=== PATIENT | male | born 1955 | race Caucasian/White ===

== ENCOUNTER 2024-12-07 14:28 | Inpatient (IN) | payer MEDICARE, OTHER ==
[~2024-12-07] VITALS: Ht 167.6 cm; Wt 118.8 kg
[2024-12-07] MEDS ORDERED: MECL-159 PO (15:16)
[2024-12-07] MEDS ORDERED: NA P133E RC (15:16)
[2024-12-07] MEDS ORDERED: ACET-3117 PO (15:16)
[2024-12-07] MEDS ORDERED: FERR-56 PO (15:16)
[2024-12-07] MEDS ORDERED: INSU100V7 SQ (15:16)
[2024-12-07] MEDS ORDERED: ASPI81TA31 PO (15:16)
[2024-12-07] MEDS ORDERED: LEVE500T9 PO (15:16)
[2024-12-07] MEDS ORDERED: AMLO10TA4 PO (15:16)
[2024-12-07] MEDS ORDERED: GUAI-1197 PO (15:16)
[2024-12-07] MEDS ORDERED: LEVO200T9 PO (15:16)
[2024-12-07] MEDS ORDERED: DIFL15OI3 TP (15:16)
[2024-12-07] MEDS ORDERED: GABA300C PO (15:16)
[2024-12-07] MEDS ORDERED: LOSA25TA27 PO (15:16)
[2024-12-07] MEDS ORDERED: INSU100C (15:16)
[2024-12-07] MEDS ORDERED: BISA10SU61 RC (15:16)
[2024-12-07] MEDS ORDERED: ATOR40TA PO (15:16)
[2024-12-07] MEDS ORDERED: CEFP200T14 PO (15:16)
[2024-12-07] MEDS ORDERED: MAGN400O6 PO (15:16)
[2024-12-07] MEDS ORDERED: METF-442 PO (15:16)
[2024-12-07 15:36] LABS: CALCIUM 11.2 mg/dL (8.5-10.1); CARBON DIOXIDE 23 mmol/L (21-32); CHLORIDE 105 mmol/L (98-107); CREATININE 0.9 mg/dL (0.6-1.3); GLUCOSE 192 mg/dL (74-106); POTASSIUM 4.2 mmol/L (3.5-5.1); SODIUM SERUM 140 mmol/L (136-145); UREA NITROGEN, BLOOD 11 mg/dL (7-18)
[2024-12-07 15:37] LABS: AMMONIA 27 umol/L (11-32)
[2024-12-07 15:38] LABS: BASOPHILS # (AUTO) 0.1 K/UL (0.0-0.2); BASOPHILS % (AUTO) 1.3 % (0.0-2.0); DIFFERENTIAL COMMENT 1; EOSINOPHILS # (AUTO) 0.4 K/uL (0.0-0.7); EOSINOPHILS % (AUTO) 5.8 % (0.0-7.0); HEMATOCRIT 37.7 % (36.7-47.1); LYMPHOCYTES % (AUTO) 26.1 % (20.5-51.5); MEAN CORPUSCULAR HEMOGLOBIN 31.4 uug (23.8-33.4); MEAN CORPUSCULAR HGB CONC 34 g/dL (32.5-36.3); MEAN CORPUSCULAR VOLUME 91.4 fL (73.0-96.2); MONOCYTES # (AUTO) 0.5 K/uL (0.1-1.30); MONOCYTES % (AUTO) 6.9 % (0.0-11.0); NEUTROPHILS # (AUTO) 4.6 K/uL (1.8-8.9); NEUTROPHILS % (AUTO) 59.9 % (38.5-71.5); PLATELET COUNT (AUTO) 231 K/uL (152-348); RED BLOOD CELL COUNT(AUTO) 4.13 MIL/uL (4.06-5.63); RED CELL DISTRIBUTION WIDTH 13.3 % (12.1-16.2); WHITE BLOOD COUNT (AUTO) 7.7 K/uL (3.6-10.2)
[2024-12-07 15:48] LABS: ETHANOL < 3 MG/DL (0-10)
[2024-12-07 15:49] LABS: ALANINE AMINOTRANSFERASE 42 U/L (16-63); ALBUMIN 3.5 g/dL (3.4-5.0); ALKALINE PHOSPHATASE 109 U/L (50-136); ASPARTATE AMINOTRANSFERASE 20 U/L (15-37); BILIRUBIN,DIRECT 0.2 mg/dL (0.0-0.2); BILIRUBIN,TOTAL 0.4 mg/dL (0.2-1.0)
[2024-12-07 15:50] LABS: ACETAMINOPHEN < 2.0 ug/mL (10-30)
[2024-12-07 16:03] LABS: *BILIRUBIN,URIN NEGATIVE (NEGATIVE); *BLOOD, URINE NEGATIVE (NEGATIVE); *COLOR,URINE YELLOW (YELLOW); *KETONES,URINE NEGATIVE (NEGATIVE); *PROTEIN,URINE NEGATIVE (NEGATIVE); LEUKOCYTE ESTERASE ,URINE NEGATIVE (NEGATIVE); NITRITE, URINE NEGATIVE (NEGATIVE); UGLUCOSE TRACE (NEGATIVE)
[2024-12-07 16:10] LABS: THYROID STIMULATING HORMONE 2.674 mIU/mL (0.358-3.740)
[2024-12-07 16:11] LABS: *CLARITY,URINE CLEAR (CLEAR)
[2024-12-07 16:12] LABS: RBC,URINE NONE SEEN /HPF (0-3); WBC,URINE 0-3 /HPF (0-3)
[2024-12-07 16:13] LABS: *AMPHETAMINE, URINE NEGATIVE (NEGATIVE); *BARBITURATE, URINE NEGATIVE (NEGATIVE); *BENZODIAZEPINE, URINE NEGATIVE (NEGATIVE); *CANNABINOID, URINE NEGATIVE (NEGATIVE); *COCCAINE, URINE NEGATIVE (NEGATIVE); *OPIATE, URINE NEGATIVE (NEGATIVE); *PHENCYCLIDINE SCREEN,URINE NEGATIVE (NEGATIVE); BACTERIA,URINE NONE SEEN /HPF (NONE SEEN); FENTANYL, URINE NEGATIVE (NEGATIVE); SQUAMOUS EPITHELIAL CELL,UR NONE SEEN /HPF (NONE SEEN); URINE AMORPHOUS URATE MODERATE /HPF
[2024-12-07] MEDS ORDERED: HYDROCODONE/APAP 10-325 MG TABLET ONE (17:26)
[2024-12-07] MEDS: HYDROCODONE/APAP 10-325 MG TABLET PO ONE (17:30)
[2024-12-07] MEDS ORDERED: CALCIUM CARBONATE 500 MG TAB.CHEW ONE (20:23)
[2024-12-07] MEDS: CALCIUM CARBONATE 500 MG TAB.CHEW PO STA (20:23)
[2024-12-08 02:00] VITALS: BP 155/76; TEMP 98.3; O2SAT 98
[2024-12-08] MEDS ORDERED: QUETIAPINE FUMARATE 25 MG TABLET PO PRN (03:45)
[2024-12-08] MEDS ORDERED: MAGNESIUM HYDROXIDE 30 ML LIQUID UDC PO PRN ×2 (03:45→12:00)
[2024-12-08] MEDS ORDERED: ZOLPIDEM 5 MG TABLET PO PRN (03:45)
[2024-12-08 08:18] VITALS: BP 146/73; TEMP 98.5; O2SAT 97
[2024-12-08] MEDS ORDERED: METF-440 PO (10:22)
[2024-12-08] MEDS ORDERED: ACET-2154 PO (10:23)
[2024-12-08] MEDS ORDERED: FLEET ENEMA 133 ML BOTTLE RC PRN (12:00)
[2024-12-08] MEDS ORDERED: BISACODYL 10 MG SUPP.RECT RC PRN (12:00)
[2024-12-08] MEDS ORDERED: ACETAMINOPHEN 325 MG TABLET-SA PATIENTS-PAIN ONLY PO PRN (12:00)
[2024-12-08] MEDS ORDERED: MECLIZINE HCL 25 MG TABLET PO PRN (12:00)
[2024-12-08] MEDS ORDERED: GUAIFENESIN SUGAR FREE 100 MG/5 ML UDC PO PRN (12:00)
[2024-12-08] MEDS ORDERED: ACETAMINOPHEN 325 MG TABLET PO PRN (12:15)
[2024-12-08] MEDS: AMLODIPINE 10 MG TABLET PO SCH (12:51)
[2024-12-08] MEDS: LOSARTAN POTASSIUM 25 MG TABLET PO SCH (12:51)
[2024-12-08] MEDS: FERROUS SULFATE 325 MG TABEC PO SCH (12:51)
[2024-12-08] MEDS: ASPIRIN 81 MG TAB.CHEW PO SCH (12:51)
[2024-12-08] MEDS: risperiDONE 0.5 MG TABLET PO PRN (12:53)
[2024-12-08] MEDS: DIVALPROEX 125 MG TABLET.DR PO SCH (13:15)
[2024-12-08] MEDS: ACETAMINOPHEN 325 MG TABLET PO PRN (13:40)
[2024-12-08 16:24] VITALS: BP 116/57; TEMP 98.5; O2SAT 98
[2024-12-08] MEDS: levETIRAcetam 500 MG TABLET PO SCH (17:25)
[2024-12-08] MEDS: GABAPENTIN 300 MG CAPSULE PO SCH (17:25)
[2024-12-08] MEDS: METFORMIN HCL 500 MG TABLET PO SCH (17:25)
[2024-12-08 20:00] VITALS: BP 110/59; TEMP 97.8; O2SAT 95
[2024-12-08] MEDS: risperiDONE 0.5 MG TABLET PO SCH (21:41)
[2024-12-08] MEDS: ATORVASTATIN 40 MG TABLET PO SCH (21:41)
[2024-12-09] MEDS: ZOLPIDEM 5 MG TABLET PO PRN (03:28)
[2024-12-09] MEDS: LEVOTHYROXINE SODIUM 200 MCG TABLET PO SCH (07:12)
[2024-12-09 08:24] VITALS: BP 132/74; TEMP 98.5; O2SAT 98
[2024-12-09] MEDS: risperiDONE 0.5 MG TABLET PO SCH (12:01)
[2024-12-09 16:44] VITALS: BP 140/69; TEMP 98; O2SAT 98
[2024-12-09 19:53] VITALS: BP 139/63; TEMP 98.4; O2SAT 98
[2024-12-09] MEDS: MUPIROCIN 2% OINT 22 GM TUBE NS SCH (21:00)
[2024-12-10 08:05] VITALS: BP 121/56; TEMP 98; O2SAT 98
[2024-12-10] MEDS ORDERED: VITAMINS A AND D OINT 42 GM TUBE TP PRN (11:45)
[2024-12-10 15:26] VITALS: BP 119/68; TEMP 98.2; O2SAT 98
[2024-12-10] MEDS: CLOTRIMAZOLE 1% CREAM 30 GM TUBE TOP SCH (17:00)
[2024-12-10] MEDS ORDERED: risperiDONE 0.5 MG TABLET PO SCH (21:00)
[2024-12-10] MEDS: risperiDONE 1 MG TABLET PO SCH (21:09)
[2024-12-10] MEDS: REMEDY ESSENTIAL ZINC PASTE 113 GM TOP SCH (21:10)
[2024-12-10] MEDS: MUPIROCIN 2% OINT 22 GM TUBE TP SCH (21:11)
[2024-12-10 23:42] VITALS: BP 122/59; TEMP 97.7; O2SAT 95
[2024-12-11 08:47] VITALS: BP 159/76; TEMP 98; O2SAT 96
[2024-12-11] MEDS ORDERED: risperiDONE 0.5 MG TABLET PO SCH (09:00)
[2024-12-11] MEDS: risperiDONE 1 MG TABLET PO SCH (09:19)
[2024-12-11 15:53] VITALS: BP 92/43; TEMP 98; O2SAT 96
[2024-12-11 19:45] VITALS: BP 129/61; TEMP 97.2; O2SAT 96
[2024-12-12 08:18] VITALS: BP 162/75; TEMP 97.9; O2SAT 96
[2024-12-12] MEDS: DIVALPROEX 125 MG TABLET.DR PO SCH (13:28)
[2024-12-12 16:31] VITALS: BP 129/74; TEMP 98.1; O2SAT 97
[2024-12-12 20:00] VITALS: BP 139/71; TEMP 98; O2SAT 96
[2024-12-12] MEDS: MAG HYDROX/AL HYDROX/SIMETH 30 ML LIQUID UDC PO PRN (20:52)
[2024-12-12] MEDS: risperiDONE 2 MG TABLET PO SCH (20:54)
[2024-12-12] MEDS ORDERED: risperiDONE 1 MG TABLET PO SCH (21:00)
[2024-12-13 07:48] VITALS: BP 131/65; TEMP 98; O2SAT 98
[2024-12-13 15:49] VITALS: BP 118/59; TEMP 98; O2SAT 99
[2024-12-13 20:00] VITALS: BP 98/55; TEMP 97.7; O2SAT 93
[2024-12-13 20:27] VITALS: BP 102/64
[2024-12-13] MEDS: GUAIFENESIN/DEXTROMETHORPHAN 5 ML UDC PO PRN (23:23)
[2024-12-14 07:40] VITALS: BP 94/67; TEMP 97.8; O2SAT 98
[2024-12-14 16:00] VITALS: BP 156/75; TEMP 97.6; O2SAT 97
[2024-12-14 20:10] VITALS: BP 142/79; TEMP 97.3; O2SAT 99
[2024-12-15 07:56] VITALS: BP 109/54; TEMP 98.7; O2SAT 95
[2024-12-15] MEDS: risperiDONE 2 MG TABLET PO SCH (08:43)
[2024-12-15] MEDS ORDERED: risperiDONE 1 MG TABLET PO SCH (09:00)
[2024-12-15 12:00] VITALS: BP 129/68; TEMP 98.1; O2SAT 95
[2024-12-15 15:05] VITALS: BP 115/57; TEMP 98; O2SAT 94
[2024-12-16 07:51] VITALS: BP 137/69; TEMP 98.4; O2SAT 95
[2024-12-16] MEDS: LINAGLIPTIN 5 MG TABLET PO SCH (08:19)
[2024-12-16] MEDS: DIVALPROEX 125 MG TABLET.DR PO SCH (13:33)
[2024-12-16 15:58] VITALS: BP 131/79; TEMP 97.6; O2SAT 96
[2024-12-16 20:14] VITALS: BP 104/52; TEMP 98.2; O2SAT 95
[2024-12-17 06:00] VITALS: BP 124/63; TEMP 97.8; O2SAT 96
[2024-12-17 08:00] VITALS: BP 116/64; TEMP 98.3; O2SAT 94
[2024-12-17 11:00] VITALS: BP 141/67; O2SAT 96
[2024-12-17 15:23] VITALS: BP 120/69; TEMP 98; O2SAT 99
[2024-12-17 20:00] VITALS: BP 113/68; TEMP 97.8; O2SAT 93
[2024-12-18 07:52] VITALS: BP 153/67; TEMP 98; O2SAT 96
[2024-12-18 16:05] VITALS: BP 94/53; TEMP 98; O2SAT 96
[2024-12-18 19:53] VITALS: BP 114/68; TEMP 98.9; O2SAT 97
[2024-12-19 08:24] VITALS: BP 125/62; TEMP 97.9; O2SAT 97
[2024-12-19 08:38] VITALS: BP 125/62
== END 2024-12-19 14:30 | DRG 885 ==
LOC: ER 14:51 → GPS 23:30 → GPSOV3 12-15 07:21 → GPS 12-17 11:11
PROVIDERS: ADMIT Psychiatry & Neurology Psychiatry; ATTEND Nurse Practitioner Family
DX: F31.9 Bipolar disorder, unspecified (principal); L03.116 Cellulitis of left lower limb; Z68.41 Body mass index [BMI] 40.0-44.9, adult; G40.909 Epilepsy, unspecified, not intractable, without status epilepticus; E11.42 Type 2 diabetes mellitus with diabetic polyneuropathy; S81.802A Unspecified open wound, left lower leg, initial encounter; X58.XXXA Exposure to other specified factors, initial encounter; Y92.129 Unspecified place in nursing home as the place of occurrence of the external cause; Z95.0 Presence of cardiac pacemaker; E03.9 Hypothyroidism, unspecified; E78.5 Hyperlipidemia, unspecified; M20.42 Other hammer toe(s) (acquired), left foot; M20.41 Other hammer toe(s) (acquired), right foot; Z79.890 Hormone replacement therapy; Z87.891 Personal history of nicotine dependence; S06.9XAS Unspecified intracranial injury with loss of consciousness status unknown, sequela; S01.90XS Unspecified open wound of unspecified part of head, sequela; W33.0 Accidental rifle, shotgun and larger firearm discharge; Z79.4 Long term (current) use of insulin; Z79.84 Long term (current) use of oral hypoglycemic drugs; Z79.82 Long term (current) use of aspirin; I25.10 Atherosclerotic heart disease of native coronary artery without angina pectoris; I10 Essential (primary) hypertension; G93.89 Other specified disorders of brain; Z79.899 Other long term (current) drug therapy; E66.01 Morbid (severe) obesity due to excess calories; Z87.01 Personal history of pneumonia (recurrent); Z22.322 Carrier or suspected carrier of Methicillin resistant Staphylococcus aureus
CPT/HCPCS: 36415; 70450; 71045; 80164; 84443; 84484; 85025; 85730; A4663; G0480